=== PATIENT | male | born 1955 | race Caucasian/White ===

== ENCOUNTER → 2024-09-02 12:37 | Outpatient (REF) | payer MEDICARE, BC, SELFPAY | LOC: HWEVLT 12:37 | PROVIDERS: ATTENDING PHYSICIAN Radiology Vascular & Interventional Radiology | DX: I83.891 Varicose veins of right lower extremity with other complications (principal) | CPT/HCPCS: 93971 ==

== ENCOUNTER → 2025-07-05 09:28 | Outpatient (REF) | payer MEDICARE, BC, SELFPAY | LOC: HWEVLT 09:28 | PROVIDERS: ATTENDING PHYSICIAN Radiology Diagnostic Radiology | DX: I83.891 Varicose veins of right lower extremity with other complications (principal) | CPT/HCPCS: 36478; C1769 ==

== ENCOUNTER → 2025-07-19 09:57 | Outpatient (REF) | payer MEDICARE, BC, SELFPAY | LOC: HWEVLT 09:57 | PROVIDERS: ATTENDING PHYSICIAN Radiology Vascular & Interventional Radiology | DX: I83.891 Varicose veins of right lower extremity with other complications (principal) | CPT/HCPCS: 93971 ==